=== PATIENT | female | born 1975 | race African-American/Black ===

== ENCOUNTER 2020-10-22 05:48 | Inpatient (IN) ==
[2020-10-16 11:10] LABS: Basophils % 0.6 % (0.0-0.8); Eosinophils # 0.2 10*3/uL (0.0-0.87); Eosinophils % 2.6 % (0.00-10.9); Hematocrit 33.5 VOL% (35.7-47.0); Hemoglobin 11.5 GM/DL (12.0-16.0); Immature Granulocytes % 0.6 %; Immature Granulocytes Absolute 0.04 #; Lymphocytes # 1.3 10*3/uL (1.4-4.0); Lymphocytes % 18.3 % (21.3-54.2); Mean Corpuscular HGB Conc 34.3 GM/DL (32-36); Mean Corpuscular Volume 103.1 FL (87-102); Mean Platelet Volume 10.9 FL (9.6-12.0); Monocytes % 9.2 % (1.7-12.7); NRBC # 0.02 10*3/uL; Neutrophils % 68.7 % (38.7-73.9); Platelet Count 125 T/CUMM (130-400); Red Blood Count 3.25 MC/CUMM (3.8-5.5); Red Cell Distribution Width 13.5 % (9.3-17.3); White Blood Count 7.1 T/CUMM (4-12)
[2020-10-16 11:26] LABS: Calcium 7.5 MG/DL (8.5-10.1); Osmolality,Calculated 288.8 MOS/KG (273-304)
[2020-10-16 11:27] LABS: Hypochromasia 1+
[2020-10-22] MEDS ORDERED: LEVOFLOXACIN INJ 500 MG in PREMIX 1 EACH IV ONE (05:54)
[2020-10-22] MEDS ORDERED: ALVIMOPAN 12 MG CAPSULE PO STA (05:54)
[2020-10-22] MEDS ORDERED: SODIUM CHLORIDE 0.9% 250 ML IV SCH (06:30)
[2020-10-22 06:40] LABS: Hematocrit 34.6 VOL% (35.7-47.0); Hemoglobin 11.8 GM/DL (12.0-16.0)
[2020-10-22] MEDS ORDERED: fentaNYL 250 MCG/5 ML VIAL ONE (06:59)
[2020-10-22] MEDS ORDERED: MIDAZOLAM 2 MG/2 ML VIAL ONE (06:59)
[2020-10-22] MEDS ORDERED: PHENYLEPHRINE 10 MG/1 ML VIAL IV ONE (07:46)
[2020-10-22] MEDS ORDERED: PHENYLEPHRINE 1 MG/10 ML SYRINGE IV ONE (08:11)
[2020-10-22] MEDS ORDERED: ROCURONIUM 50 MG/5 ML VIAL IV ONE (08:11)
[2020-10-22] MEDS ORDERED: LIDOCAINE 2% 5 ML VIAL ONE (08:11)
[2020-10-22] MEDS ORDERED: SEVOFLURANE 1 UNIT/15 MINUTE INH ONE (08:11)
[2020-10-22] MEDS ORDERED: ONDANSETRON 4 MG/2 ML VIAL ONE (08:11)
[2020-10-22] MEDS ORDERED: propofoL 200 MG/20 ML VIAL IV ONE (08:11)
[2020-10-22] MEDS ORDERED: SODIUM CHLORIDE 0.9% 100 ML IV ONE (08:11)
[2020-10-22] MEDS ORDERED: ONDANSETRON 4 MG/2 ML VIAL IV PRN ×2 (09:27→10:11)
[2020-10-22] MEDS ORDERED: FLUTICASONE 50 MCG NASAL SPRAY 16 GM BOTTLE BOTH NARES PRN (09:34)
[2020-10-22] MEDS ORDERED: NEOSTIGMINE 10 MG/10 ML VIAL ONE (09:41)
[2020-10-22] MEDS ORDERED: GLYCOPYRROLATE 0.4 MG/2 ML VIAL ONE (09:41)
[2020-10-22] MEDS ORDERED: HYDROmorphone 2 MG/1 ML VIAL IV PRN (10:11)
[2020-10-22] MEDS ORDERED: ALBUTEROL 2.5 MG/3 ML NEB RESP TX PRN (10:38)
[2020-10-22] MEDS: oxyCODONE/ACETAMINOPHEN 5-325 MG TABLET PO PRN (13:03)
[2020-10-22] MEDS: SODIUM CHLORIDE 0.9% 1,000 ML IV SCH (13:47)
[2020-10-22] MEDS: CALCIUM CARBONATE CHEW 500 MG TABLET PO SCH ×2 (16:01→22:14)
[2020-10-22] MEDS: HYDROmorphone 2 MG/1 ML VIAL IV PRN ×2 (16:01→20:18)
[2020-10-22] MEDS: INSULIN LISPRO 100 UNIT/ML SUBCUT SCH ×2 (16:59→22:21)
[2020-10-22] MEDS ORDERED: BREO INH SCH (21:00)
[2020-10-22] MEDS ORDERED: diphenhydrAMINE CAP 25 MG CAPSULE PO SCH (21:00)
[2020-10-22] MEDS ORDERED: ROSUVASTATIN 20 MG TABLET PO SCH (21:00)
[2020-10-22] MEDS: ALVIMOPAN 12 MG CAPSULE PO SCH (22:14)
[2020-10-22] MEDS: cloNIDine 0.1 MG TABLET PO SCH (22:14)
[2020-10-23] MEDS: SODIUM CHLORIDE 0.9% 1,000 ML IV SCH (02:58)
[2020-10-23] MEDS: HYDROmorphone 2 MG/1 ML VIAL IV PRN (03:27)
[2020-10-23 06:23] LABS: Basophils # 0.1 10*3/uL (0.0-0.2); Basophils % 0.5 % (0.0-0.8); Eosinophils % 0.4 % (0.00-10.9); Hemoglobin 10.9 GM/DL (12.0-16.0); Immature Granulocytes % 0.5 %; Immature Granulocytes Absolute 0.05 #; Lymphocytes # 0.9 10*3/uL (1.4-4.0); Lymphocytes % 9.3 % (21.3-54.2); Mean Corpuscular Volume 107.8 FL (87-102); Mean Platelet Volume 10.9 FL (9.6-12.0); Monocytes % 9.2 % (1.7-12.7); Neutrophils % 80.1 % (38.7-73.9); Platelet Count 120 T/CUMM (130-400); Red Blood Count 3.06 MC/CUMM (3.8-5.5); Red Cell Distribution Width 13.8 % (9.3-17.3); White Blood Count 9.1 T/CUMM (4-12)
[2020-10-23 06:45] LABS: Calcium 7.8 MG/DL (8.5-10.1); Osmolality,Calculated 285.4 MOS/KG (273-304)
[2020-10-23 07:48] VITALS: BP 128/72
[2020-10-23] MEDS: INSULIN LISPRO 100 UNIT/ML SUBCUT SCH ×2 (08:15→13:20)
[2020-10-23] MEDS: CALCIUM CARBONATE CHEW 500 MG TABLET PO SCH (08:16)
[2020-10-23] MEDS: ALVIMOPAN 12 MG CAPSULE PO SCH (08:16)
[2020-10-23] MEDS: oxyCODONE/ACETAMINOPHEN 5-325 MG TABLET PO PRN (08:17)
[2020-10-23] MEDS: cloNIDine 0.1 MG TABLET PO SCH (08:17)
[2020-10-23 08:46] LABS: Macrocytosis 2+; Platelet Estimate Adequate; Polychromasia Slight; Stomatocytes Few
[2020-10-23] MEDS ORDERED: LUBIPROSTONE 8 MCG CAPSULE PO SCH (09:00)
[2020-10-23] MEDS ORDERED: DOCUSATE SODIUM 100 MG CAPSULE PO SCH (09:00)
[2020-10-23] MEDS ORDERED: MONTELUKAST 10 MG TABLET PO SCH (09:00)
[2020-10-29] MEDS ORDERED: TRULICITY SUBCUT SCH (09:00)
== END 2020-10-23 14:00 | disposition home or self-care (01) | DRG 656 ==
LOC: N.OR 05:48 → N.SDSINP 05:51 → N.5E 09:27
PROVIDERS: ADMIT Urology; ATTEND Urology